=== PATIENT | male | born 1960 | race Caucasian/White ===

== ENCOUNTER 2017-04-16 00:57 | Emergency (ER) | END 2017-04-16 05:04 | disposition home or self-care (01) ==

== ENCOUNTER 2018-01-24 00:18 | Emergency (ER) | END 2018-01-24 03:30 | disposition home or self-care (01) ==

== ENCOUNTER 2018-05-22 09:53 | Inpatient (IN) | payer BC ==
[~2018-05-22] VITALS: Ht 175.3 cm; Wt 111.2 kg
[2018-05-22] VITALS (21 sets, daily range): BP systolic 96–137; BP diastolic 60–85; PULSE 66–100; RESP 10–20; Ht 175.3 cm; Wt 111.2 kg
[~2018-05-22 09:53] MED LIST: ASPI-535 PO; ATOR20TA38 PO; GABA300C16 PO; HYDR-4011 PO; LISI10TA2 PO; OMEG-135 PO; TAMS0.4C2 PO
[2018-05-22] MEDS ORDERED: ATOR20TA65 ORAL (12:12)
--- NOTE | 2018-05-22 12:21 | PREAC ---
Date/Time of Note Date/Time of Note DATE: 05/22/18 TIME: 12:20 Anesthesia Eval and Record Evaluation Time Pre-Procedure Interview DATE: 05/22/18 TIME: 12:20 Age 57 Sex male NPO: 8 hrs Preoperative diagnosis BPH Planned procedure TURP Past Medical History Past Medical History: Includes Cardio: HTN GI: Obesity Surgery & Anesthesia Issues No known issue Meds Anticoagulation: No Beta Kathy within 24 hr: No Reason Beta Kathy not given: Pt. not on B-Kathy Active Scripts Hydrocodone/Acetaminophen ([place] 5-325 Tablet) 1 Each Tablet, 1 TAB PO Q6H PRN for SEVERE PAIN LEVEL 7-10, #20 TAB Prov:WOODROWCAROLYNNSudeep Philip CUPOLA OPERATOR 04/16/17 Reported Medications Atorvastatin Calcium (Atorvastatin Calcium) 20 Mg Tablet, 1 TAB ORAL QHS 05/22/18 [place]-3 Fatty Acids/Fish Oil (Fish Oil 1,000 mg Capsule) 1 Each Capsule, 1 EACH PO DAILY, CAP 01/24/18 Atorvastatin Calcium* (Atorvastatin Calcium*) 20 Mg Tablet, 20 MG PO QHS, #30 TAB 01/24/18 Gabapentin* (Gabapentin*) 300 Mg Capsule, 600 MG PO TID, #180 CAP 01/24/18 Aspirin Ec (Aspir 81) 81 Mg Tablet.dr, 81 MG PO DAILY, #30 TAB 01/24/18 Lisinopril* (Lisinopril*) 10 Mg Tablet, 10 MG PO DAILY, #30 TAB 01/24/18 Tamsulosin Hcl* (Tamsulosin Hcl*) 0.4 Mg Cap.er.24h, 0.4 MG PO HS, CAP 01/24/18 Meds reviewed: Yes Allergies Coded Allergies: No Known Allergy (Unverified , 05/22/18) Allergies Reviewed: Yes Labs/Studies Labs Reviewed: Reviewed by anesthesiologist test: N/A Studies: ECG (NL), CXR (NAPD) Pre-procedure Exam Last vitals Vital Signs Date Temp Pulse Resp B/P (MAP) Pulse Ox O2 O2 Flow FiO2 Time Delivery Rate 05/22/18 97.4 82 18 128/72 96 Room Air 11:55 (90) Airway: Adequate mouth opening, Adequate thyromental dist Mallampati: Mallampati II Teeth: Normal Lung: Normal Heart: Normal ASA Physical Status ASA physical status: 2 Emergency: None Planned Anesthetic General/MAC: ETT Pre-operative Attestations Prior to commencing anesthesia and surgery, the patient was re-evaluated, there was verification of: *The patient's identity *The results of appropriate recent lab work and preoperative vital signs *The above evaluation not changing prior to induction *Anesthetic plan, risk benefits, alternative and complications discussed with patient/family; questions answered; patient/family understands, accepts and wishes to proceed. Rupesh Abdalla M.D. May 22, 2018 12:21
[2018-05-22] MEDS ORDERED: NEOSTIGMINE 3 MG/3 ML SYRINGE ONE (12:28)
[2018-05-22] MEDS ORDERED: ROCURONIUM 50 MG INJ ONE (12:28)
[2018-05-22] MEDS ORDERED: GLYCOPYRROLATE 0.4 MG INJ ONE (12:28)
[2018-05-22] MEDS ORDERED: CEFAZOLIN 1 GM INJ ONE (12:28)
[2018-05-22] MEDS ORDERED: PROPOFOL 20 ML ONE (12:28)
[2018-05-22] MEDS ORDERED: OXYCODONE/ACETAMINOPHEN (5/325) TAB PO PRN ×2 (12:30)
[2018-05-22] MEDS ORDERED: FENTAnyl 50 MCG/ML VIAL ONE ×3 (12:30→13:52)
[2018-05-22] MEDS ORDERED: DEXAMETHASONE 4 MG/ML 5 ML INJ ONE (12:30)
[2018-05-22] MEDS ORDERED: ALBUTEROL 0.083% (NEB) 2.5 MG/3 ML AMP HHN PRN (12:30)
[2018-05-22] MEDS ORDERED: DIPHENHYDRAMINE 50 MG INJ IV PRN (12:30)
[2018-05-22] MEDS ORDERED: EPHEDrine SULFATE 50 MG/5 ML SYG IV PRN (12:30)
[2018-05-22] MEDS ORDERED: HYDROmorphONE 1 MG/5 ML IV SYRINGE IV PRN ×3 (12:30)
[2018-05-22] MEDS ORDERED: LABETALOL HCL 20MG INJ IV PRN (12:30)
[2018-05-22] MEDS ORDERED: IPRATROPIUM (NEB) 0.5 MG/2.5 ML AMP HHN PRN (12:30)
[2018-05-22] MEDS ORDERED: MIDAZOLAM 1 MG/ML 2 ML INJ ONE (12:30)
[2018-05-22] MEDS ORDERED: hydrALAzine 20 MG INJ IV PRN (12:30)
[2018-05-22] MEDS ORDERED: MIDAZOLAM 1 MG/ML 2 ML INJ IV PRN (12:30)
[2018-05-22] MEDS ORDERED: ONDANSETRON 4 MG INJ ONE (12:30)
[2018-05-22] MEDS ORDERED: MEPERIDINE 25 MG INJ IV PRN (12:30)
[2018-05-22] MEDS ORDERED: FENTAnyl 50 MCG/ML VIAL IV PRN ×3 (12:30)
[2018-05-22] MEDS ORDERED: TRIMETHOBENZAMIDE 100 MG/ML VIAL IM PRN (12:30)
[2018-05-22] MEDS ORDERED: ONDANSETRON 4 MG INJ IV PRN (12:30)
--- NOTE | 2018-05-22 12:40 | HPN ---
Date/Time of Note Date/Time of Note DATE: 05/22/18 TIME: 12:39 Interval H&P Admission Note Pt. seen H&P reviewed: No system changes JAMESON ODONNELL MD May 22, 2018 12:40
[2018-05-22] MEDS ORDERED: SUGAMMADEX SODIUM 200 MG/2 ML VIAL IV ONE (14:41)
[2018-05-22] MEDS ORDERED: DEXTROSE 5%-0.45% NACL 1,000 ML IV SCH (15:00)
--- NOTE | 2018-05-22 15:03 | OPR ---
Date/Time of Note Date/Time of Note DATE: 05/22/18 TIME: 14:59 Operative Report Procedure Date: May 22, 2018 Preoperative Diagnosis Benign prostatic hypertrophy and history of urinary retention Postoperative Diagnosis Same Operation/Procedure Performed Transurethral resection of prostate Surgeon see signature line Senior Net Software Engineer Tony Gutierrez Anesthesia Type: general Anesthesiologist: Rupesh Abdalla M.D. Estimated Blood Loss: other (400 mL) Transfusion none Specimen Prostatic tissue Grafts/Implants none Complications none Pt Condition Post Procedure: stable Disposition: PACU Indications Benign prostatic hypertrophy and urinary retention Procedure Description The patient was brought to the operating room and general anesthesia was induced. Timeout was done, the patient was identified by his name, birthdate and the procedure. The patient was given 2 g of Ancef IV at the start of the procedure. The genital area was then prepped and draped in the usual sterile manner. Cystoscopy was done with a 22 Samoan cystoscope and it showed prostatic enlargement with obstruction. He had a very large median lobe as well as lateral lobes. The bladder was trabeculated. There was no bladder tumors or stones. The cystoscope was then removed and the urethra was dilated with the [place] dilators up to #30 Samoan. The 26 Samoan bipolar resectoscope sheath was then introduced under direct vision through the penile urethra all the way to the bladder. Then the resection of the prostate was started. First the median lobe was resected then the right lateral lobe then the left lateral lobe and finally the anterior lobe as well as apical tissue. All the bleeders were electrocoagulated. All the prostatic chips were evacuated. Good hemostasis was obtained. The ureteral orifices as well as external sphincter were intact and safeguarded during the whole procedure. At the end of the procedure the resectoscope was removed and #24 Samoan three-way Chavez catheter was inserted into the bladder. The balloon was inflated with 60 mL of sterile water. The catheter was connected to a drainage bag and continuous bladder irrigation was started in the operating room with normal saline. The patient was transferred to the recovery room in stable and satisfactory condition. JAMESON ODONNELL MD May 22, 2018 15:03
--- NOTE | 2018-05-22 15:07 | PAC ---
Date/Time of Note Date/Time of Note DATE: 05/22/18 TIME: 15:07 Post-Anesthesia Notes Post-Anesthesia Note Last documented vital signs Vital Signs Date Temp Pulse Resp B/P (MAP) Pulse Ox O2 O2 Flow FiO2 Time Delivery Rate 05/22/18 97.4 82 18 128/72 96 Room Air 11:55 (90) Activity: WNL Respiratory function: WNL Cardiovascular function: WNL Mental status: Baseline Pain reasonably controlled: Yes Hydration appropriate: Yes Nausea/Vomiting absent: Yes Rupesh Abdalla M.D. May 22, 2018 15:07
[2018-05-22] MEDS ORDERED: MAGNESIUM HYDROXIDE 30ML CUP PO PRN (15:30)
--- NOTE | 2018-05-22 16:02 | CONS ---
Assessment/Plan Assessment/Plan Assessment/Plan (Daily) 57 yo male with hypertension who is POD-0 for TURP. We have been asked to follow along for medical management - Ok to continue lisinopril - Marilee-TURP management per Dr Gavin - DVT ppx Consultation Date/Type/Reason Admit Date/Time Date/Time of Note DATE: 05/22/18 TIME: 16:00 Hx of Present Illness 57 yo male with hypertension who is POD0 for TURP We have been asked to follow along for medication management Patient currently in PACU, a bit sedated Says he only takes lisinopril Constitutional: no complaints, improved Eyes: no complaints ENT: no complaints Respiratory: no complaints Cardiovascular: no complaints Gastrointestinal: no complaints Genitourinary: no complaints Musculoskeletal: no complaints Skin: no complaints Neurologic: no complaints Endocrine: no complaints Lymphatic: no complaints Psychological: no complaints, nl mood/affect Immunologic: no complaints Past Medical History Medical History: no pertinent history Home Meds Reported Medications Lisinopril* (Lisinopril*) 10 Mg Tablet, 10 MG PO DAILY, #30 TAB 01/24/18 Discontinued Reported Medications Atorvastatin Calcium (Atorvastatin Calcium) 20 Mg Tablet, 1 TAB ORAL QHS 05/22/18 [place]-3 Fatty Acids/Fish Oil (Fish Oil 1,000 mg Capsule) 1 Each Capsule, 1 EACH PO DAILY, CAP 01/24/18 Atorvastatin Calcium* (Atorvastatin Calcium*) 20 Mg Tablet, 20 MG PO QHS, #30 TAB 01/24/18 Gabapentin* (Gabapentin*) 300 Mg Capsule, 600 MG PO TID, #180 CAP 01/24/18 Aspirin Ec (Aspir 81) 81 Mg Tablet.dr, 81 MG PO DAILY, #30 TAB 01/24/18 Tamsulosin Hcl* (Tamsulosin Hcl*) 0.4 Mg Cap.er.24h, 0.4 MG PO HS, CAP 01/24/18 Discontinued Scripts Hydrocodone/Acetaminophen ([place] 5-325 Tablet) 1 Each Tablet, 1 TAB PO Q6H PRN for SEVERE PAIN LEVEL 7-10, #20 TAB Prov:CAROLYNN TROY NP 04/16/17 Medications Current Medications Hydromorphone HCl (Dilaudid) 0.2 mg PACU PRN IV MILD PAIN 1-3; Start 05/22/18 at 12:30; Stop 05/22/18 at 16:30 Hydromorphone HCl (Dilaudid) 0.4 mg PACU PRN IV MOD PAIN 4-6 Last administered on 05/22/18at 15:45; Admin Dose 0.4 MG; Start 05/22/18 at 12:30; Stop 05/22/18 at 16:30 Hydromorphone HCl (Dilaudid) 0.6 mg PACU PRN IV SEVERE PAIN 7-10 Last administered on 05/22/18at 15:28; Admin Dose 0.6 MG; Start 05/22/18 at 12:30; Stop 05/22/18 at 16:30 Fentanyl (Sublimaze) 25 mcg PACU ORDER PRN IV MILD PAIN 1-3; Start 05/22/18 at 12:30; Stop 05/22/18 at 16:30 Fentanyl (Sublimaze) 50 mcg PACU ORDER PRN IV MOD PAIN 4-6; Start 05/22/18 at 12:30; Stop 05/22/18 at 16:30 Fentanyl (Sublimaze) 75 mcg PACU ORDER PRN IV SEVERE PAIN 7-10; Start 05/22/18 at 12:30; Stop 05/22/18 at 16:30 Oxycodone/ Acetaminophen (Percocet (5/ 325)) 1 tab PACU ORDER PRN PO .PAIN 1-5; Start 05/22/18 at 12:30; Stop 05/22/18 at 16:30 Oxycodone/ Acetaminophen (Percocet (5/ 325)) 2 tab PACU ORDER PRN PO .PAIN 6-10; Start 05/22/18 at 12:30; Stop 05/22/18 at 16:30 Ondansetron HCl (Zofran Inj) 4 mg PACU ORDER PRN IV NAUSEA/VOMITING Last administered on 05/22/18at 15:15; Admin Dose 4 MG; Start 05/22/18 at 12:30; Stop 05/22/18 at 16:30 Trimethobenzamide HCl (Tigan) 200 mg PACU ORDER PRN IM NAUSEA/VOMITING; Start 05/22/18 at 12:30; Stop 05/22/18 at 16:30 Labetalol HCl (Labetalol) 5 mg PACU ORDER PRN IV HIGH BLOOD PRESSURE; Start 05/22/18 at 12:30; Stop 05/22/18 at 16:30 Hydralazine HCl (Apresoline) 5 mg PACU ORDER PRN IV HIGH BLOOD PRESSURE; Start 05/22/18 at 12:30; Stop 05/22/18 at 16:30 Ephedrine Sulfate 5 mg PACU ORDER PRN IV BLOOD PRESSURE SUPPORT; Start 05/22/18 at 12:30; Stop 05/22/18 at 16:30 Albuterol (Proventil 0.083% (Neb)) 2.5 mg PACU ORDER PRN HHN .WHEEZING; Start 05/22/18 at 12:30; Stop 05/22/18 at 16:30 Ipratropium Plato (Atrovent 0.02% (Neb)) 0.5 mg PACU ORDER PRN HHN .WHEEZING; Start 05/22/18 at 12:30; Stop 05/22/18 at 16:30 Meperidine HCl (Demerol) 25 mg PACU ORDER PRN IV .RIGORS Last administered on 05/22/18at 15:15; Admin Dose 25 MG; Start 05/22/18 at 12:30; Stop 05/22/18 at 16:30 Diphenhydramine HCl (Benadryl) 25 mg PACU ORDER PRN IV .PRURITUS; Start 05/22/18 at 12:30; Stop 05/22/18 at 16:30 Midazolam HCl (Versed) 0.5 mg PACU ORDER PRN IV .ANXIETY; Start 05/22/18 at 12:30; Stop 05/22/18 at 16:30 Dextrose/Sodium Chloride 1,000 ml @ 50 mls/hr Q20H IV ; Start 05/22/18 at 15:00 Ciprofloxacin (Cipro) 500 mg BID@06,18 PO ; Start 05/22/18 at 18:00 Docusate Sodium (Colace) 100 mg BID PO ; Start 05/22/18 at 21:00 Acetaminophen/ Hydrocodone Bitart ([place] (5/325)) 1 tab Q4H PRN PO MODERATE PAIN LEVEL 4-6; Start 05/22/18 at 15:30 Magnesium Hydroxide (Milk Of Mag) 30 ml DAILY PRN PO CONSTIPATION; Start 05/22/18 at 15:30 Allergies: Coded Allergies: No Known Allergy (Unverified , 05/22/18) Past Surgical History TURP Past Surgical Hx: no surgical history Family History Significant Family History: no pertinent family hx Social History Alcohol Use: none Smoking Status: Never smoker Drug Use: none Exam/Review of Systems Exam Vitals Vital Signs Date Temp Pulse Resp B/P (MAP) Pulse Ox O2 O2 Flow FiO2 Time Delivery Rate 05/22/18 82 12 108/68 97 Room Air 15:51 (81) 05/22/18 98.1 15:18 05/22/18 2.0 15:04 Constitutional: alert, oriented, well developed Psych: no complaints, nl mood/affect Head: normocephalic, atraumatic Eyes: nl conjunctiva, EOMI, nl lids, nl sclera, PERRL ENMT: nl external ears & nose, nl lips & teeth, nl nasal mucosa & septum Neck: supple, non-tender Respiratory: clear to auscultation, normal air movement Cardiovascular: regular rate and rhythm, nl pulses Gastrointestinal: soft, nl liver, spleen, non-tender Musculoskeletal: nl extremities to inspection, nl gait and stance Extremities: normal pulses Neurological: ELECTRICIAN OFFICE II-XII intact, nl mental status, nl speech, nl strength Skin: nl turgor; No rash or lesions Lymph: nl lymph nodes Medications Medication Current Medications Hydromorphone HCl (Dilaudid) 0.2 mg PACU PRN IV MILD PAIN 1-3; Start 05/22/18 at 12:30; Stop 05/22/18 at 16:30 Hydromorphone HCl (Dilaudid) 0.4 mg PACU PRN IV MOD PAIN 4-6 Last administered on 05/22/18at 15:45; Admin Dose 0.4 MG; Start 05/22/18 at 12:30; Stop 05/22/18 at 16:30 Hydromorphone HCl (Dilaudid) 0.6 mg PACU PRN IV SEVERE PAIN 7-10 Last administered on 05/22/18at 15:28; Admin Dose 0.6 MG; Start 05/22/18 at 12:30; Stop 05/22/18 at 16:30 Fentanyl (Sublimaze) 25 mcg PACU ORDER PRN IV MILD PAIN 1-3; Start 05/22/18 at 12:30; Stop 05/22/18 at 16:30 Fentanyl (Sublimaze) 50 mcg PACU ORDER PRN IV MOD PAIN 4-6; Start 05/22/18 at 12:30; Stop 05/22/18 at 16:30 Fentanyl (Sublimaze) 75 mcg PACU ORDER PRN IV SEVERE PAIN 7-10; Start 05/22/18 at 12:30; Stop 05/22/18 at 16:30 Oxycodone/ Acetaminophen (Percocet (5/ 325)) 1 tab PACU ORDER PRN PO .PAIN 1-5; Start 05/22/18 at 12:30; Stop 05/22/18 at 16:30 Oxycodone/ Acetaminophen (Percocet (5/ 325)) 2 tab PACU ORDER PRN PO .PAIN 6-10; Start 05/22/18 at 12:30; Stop 05/22/18 at 16:30 Ondansetron HCl (Zofran Inj) 4 mg PACU ORDER PRN IV NAUSEA/VOMITING Last administered on 05/22/18at 15:15; Admin Dose 4 MG; Start 05/22/18 at 12:30; Stop 05/22/18 at 16:30 Trimethobenzamide HCl (Tigan) 200 mg PACU ORDER PRN IM NAUSEA/VOMITING; Start 05/22/18 at 12:30; Stop 05/22/18 at 16:30 Labetalol HCl (Labetalol) 5 mg PACU ORDER PRN IV HIGH BLOOD PRESSURE; Start 05/22/18 at 12:30; Stop 05/22/18 at 16:30 Hydralazine HCl (Apresoline) 5 mg PACU ORDER PRN IV HIGH BLOOD PRESSURE; Start 05/22/18 at 12:30; Stop 05/22/18 at 16:30 Ephedrine Sulfate 5 mg PACU ORDER PRN IV BLOOD PRESSURE SUPPORT; Start 05/22/18 at 12:30; Stop 05/22/18 at 16:30 Albuterol (Proventil 0.083% (Neb)) 2.5 mg PACU ORDER PRN HHN .WHEEZING; Start 05/22/18 at 12:30; Stop 05/22/18 at 16:30 Ipratropium Plato (Atrovent 0.02% (Neb)) 0.5 mg PACU ORDER PRN HHN .WHEEZING; Start 05/22/18 at 12:30; Stop 05/22/18 at 16:30 Meperidine HCl (Demerol) 25 mg PACU ORDER PRN IV .RIGORS Last administered on 05/22/18at 15:15; Admin Dose 25 MG; Start 05/22/18 at 12:30; Stop 05/22/18 at 16:30 Diphenhydramine HCl (Benadryl) 25 mg PACU ORDER PRN IV .PRURITUS; Start 05/22/18 at 12:30; Stop 05/22/18 at 16:30 Midazolam HCl (Versed) 0.5 mg PACU ORDER PRN IV .ANXIETY; Start 05/22/18 at 12:30; Stop 05/22/18 at 16:30 Dextrose/Sodium Chloride 1,000 ml @ 50 mls/hr Q20H IV ; Start 05/22/18 at 15:00 Ciprofloxacin (Cipro) 500 mg BID@06,18 PO ; Start 05/22/18 at 18:00 Docusate Sodium (Colace) 100 mg BID PO ; Start 05/22/18 at 21:00 Acetaminophen/ Hydrocodone Bitart ([place] (5/325)) 1 tab Q4H PRN PO MODERATE PAIN LEVEL 4-6; Start 05/22/18 at 15:30 Magnesium Hydroxide (Milk Of Mag) 30 ml DAILY PRN PO CONSTIPATION; Start 05/22/18 at 15:30 DAVID FORTE MD May 22, 2018 16:02
[2018-05-22] MEDS: CIPROFLOXACIN 500 MG TAB PO SCH (18:10)
[2018-05-22] MEDS: PANTOPRAZOLE (EC) 40 MG TAB PO SCH (20:57)
[2018-05-22] MEDS ORDERED: CALCIUM CARBONATE 500 MG CHEW TAB PO PRN (21:00)
[2018-05-22] MEDS: DOCUSATE SODIUM 100 MG CAP PO SCH (21:00)
[2018-05-22] MEDS: HYDROCODONE/APAP (5/325) TAB PO PRN (22:02)
[2018-05-23 04:00] VITALS: BP 120/71; PULSE 80; RESP 17
[2018-05-23] MEDS: CIPROFLOXACIN 500 MG TAB PO SCH (06:20)
[2018-05-23 08:16] VITALS: BP 105/60; PULSE 76; RESP 18
[2018-05-23] MEDS: PANTOPRAZOLE (EC) 40 MG TAB PO SCH (09:02)
[2018-05-23] MEDS: DOCUSATE SODIUM 100 MG CAP PO SCH (09:02)
[2018-05-23] MEDS: HYDROCODONE/APAP (5/325) TAB PO PRN ×2 (09:04→14:32)
--- NOTE | 2018-05-23 15:25 | PDOCDIS ---
Discharge Instructions DIAGNOSIS Discharge Diagnosis Benign prostatic hypertrophy and history of urinary retention. Pending pathology report CONDITION [id number] Patient Condition: [id number] Good HOME CARE INSTRUCTIONS: [id number] Diet Instructions: Awhcl2d Regular ACTIVITY: [id number] Activity Restrictions: [id number] Slowly Increase Activity Rest between Activity Avoid heavy lifting No Sexual Activity Do not Drive Avoid Heavy Housework [id number] Bathing Restrictions: [id number] Shower (May shower. Keep the catheter intact and dry it after the shower.) FOLLOW UP/APPOINTMENTS Follow-up Plan Follow-up with DR Gavin on . Call for an appointment JAMESON GAVIN MD May 23, 2018 15:25
--- NOTE | 2018-05-23 15:33 | DS ---
Date/Time of Note Date/Time of Note DATE: 05/23/18 TIME: 15:30 Discharge Summary Admission/Discharge Info Admit Date/Time May 22, 2018 at 15:04 Discharge Date/Time May 22 at 1550 Discharge Diagnosis Benign prostatic hypertrophy and history of urinary retention. Pending pathology report Patient Condition: Good Consults Hospitalist Procedures Patient underwent trans-ureteral resection of prostate on May 21, 2018 Hospital Course Postop he was on continuous bladder irrigation. The irrigation was stopped this morning and the urine remained clear. He is comfortable, has no pain and his vital signs are all stable. Therefore he is being discharged home with a Chavez catheter and a leg bag and he will come to the office next May to have the catheter removed. Urology report is still pending Home Meds Reported Medications Lisinopril* (Lisinopril*) 10 Mg Tablet, 10 MG PO DAILY, #30 TAB 01/24/18 Discontinued Reported Medications Atorvastatin Calcium (Atorvastatin Calcium) 20 Mg Tablet, 1 TAB ORAL QHS 05/22/18 [place]-3 Fatty Acids/Fish Oil (Fish Oil 1,000 mg Capsule) 1 Each Capsule, 1 EACH PO DAILY, CAP 01/24/18 Atorvastatin Calcium* (Atorvastatin Calcium*) 20 Mg Tablet, 20 MG PO QHS, #30 TAB 01/24/18 Gabapentin* (Gabapentin*) 300 Mg Capsule, 600 MG PO TID, #180 CAP 01/24/18 Aspirin Ec (Aspir 81) 81 Mg Tablet.dr, 81 MG PO DAILY, #30 TAB 01/24/18 Tamsulosin Hcl* (Tamsulosin Hcl*) 0.4 Mg Cap.er.24h, 0.4 MG PO HS, CAP 01/24/18 Discontinued Scripts Hydrocodone/Acetaminophen ([place] 5-325 Tablet) 1 Each Tablet, 1 TAB PO Q6H PRN for SEVERE PAIN LEVEL 7-10, #20 TAB Prov:CAROLYNN TROY NP 04/16/17 Follow-up Plan Follow-up with DR Gavin on . Call for an appointment Primary Care Provider Not On Staff Doctor Pending Labs Laboratory Tests Test 05/23/18 04:54 05/23/18 06:56 White Blood Count 10.5 10^3/ul (4.8-10.8) Red Blood Count 4.40 10^6/ul (4.70-6.10) Hemoglobin 13.3 g/dl (14.0-18.0) Hematocrit 39.8 % (42.0-52.0) Mean Corpuscular Volume 90.5 fl (82.0-101.0) Mean Corpuscular Hemoglobin 30.2 pg (29.0-33.0) Mean Corpuscular 33.4 g/dl (32.0-37.0) Hemoglobin Concent Red Cell Distribution Width 13.2 % (11.5-14.5) Platelet Count 218 10^3/UL (140-415) Mean Platelet Volume 10.5 fl (7.4-10.4) Immature Granulocytes % 0.500 % (0.001-0.429) Neutrophils % 88.0 % (39.0-77.0) Lymphocytes % 8.8 % (15.0-51.0) Monocytes % 2.5 % (0.0-11.0) Eosinophils % 0.1 % (0.0-7.0) Basophils % 0.1 % (0.0-2.0) Nucleated Red Blood Cells % 0.0 /100WBC (0.0-0.0) Immature Granulocytes # 0.050 10^3/ul (0.0-0.031) Neutrophils # 9.3 10^3/ul (1.6-7.5) Lymphocytes # 0.9 10^3/ul (0.8-2.9) Monocytes # 0.3 10^3/ul (0.3-0.9) Eosinophils # 0.0 10^3/ul (0.0-0.5) Basophils # 0.0 10^3/ul (0.0-0.1) Nucleated Red Blood Cells # 0.0 10^3/ul (0.0-0.0) Lab Scanned Report REFER[facility] LAB [id number] JAMESON GAVIN MD May 23, 2018 15:33
== END 2018-05-23 16:30 | disposition home or self-care (01) | DRG 714 ==
LOC: SDS 09:53 → REC 15:04 → MS1 16:45
PROVIDERS: ADMIT Urology; ATTEND Urology
PROC: 0VT08ZZ Resection of Prostate, Via Natural or Artificial Opening Endoscopic (ICD-10-PCS; principal; 2018-05-22 12:30)
DX: N40.1 Benign prostatic hyperplasia with lower urinary tract symptoms (principal); R33.8 Other retention of urine; I10 Essential (primary) hypertension; E66.9 Obesity, unspecified; Z68.36 Body mass index [BMI] 36.0-36.9, adult
CPT/HCPCS: 80048; 85025; 88305; J0690; J1100; J1170; J2175; J2250; J2405; J2710; J3010; J7042

== ENCOUNTER 2018-06-23 09:40 | Emergency (ER) | payer BC ==
[~2018-06-23] VITALS: Ht 175.3 cm; Wt 110.0 kg
[~2018-06-23 09:40] MED LIST changes: -ASPI-535 PO; -ATOR20TA38 PO; -GABA300C16 PO; -HYDR-4011 PO; -OMEG-135 PO; -TAMS0.4C2 PO
[2018-06-23 09:45] VITALS: BP 151/83; PULSE 95; RESP 18; Ht 175.3 cm; Wt 110.0 kg
[2018-06-23] MEDS ORDERED: TAMS-14 PO (11:18)
[2018-06-23] MEDS ORDERED: HYDR25SU23 PR (11:18)
[2018-06-23] MEDS ORDERED: CIPR500T4 PO (11:18)
[2018-06-23] MEDS ORDERED: DOCU-144 PO (11:20)
[2018-06-23] MEDS ORDERED: CEFTRIAXONE 1 GM INJ IM ONE (11:30)
[2018-06-23] MEDS ORDERED: LIDOCAINE 1% (MPF) 5 ML VIAL INJ ONE (11:30)
--- NOTE | 2018-06-23 12:15 | ERD ---
ER Documentation Chief Complaint Chief Complaint BURNING SENSATION WHEN URINATION; RECTAL PAIN HPI 57-year-old male presenting with dysuria. Patient stated the one month ago he had BPH and surgery to remove part of his prostate. Patient noted some burning around his anus that he is using hemorrhoid cream. He denies any changes in bowel movement. Denies fevers. Denies perineum pain. Medical history is BPH. He has an appointment on July 01 with urology. NKDA. Surgical history is prostate surgery. Social history denies ROS All systems reviewed and are negative except as per history of present illness. Medications Home Meds Active Scripts Docusate Sodium* (Colace*) 100 Mg Capsule, 100 MG PO TID, #30 CAP Prov:NATALIA HARDWICK PA-C 06/23/18 Tamsulosin Hcl* (Flomax*) 0.4 Mg Cap.er.24h, 0.4 MG PO QPM, #30 CAP Prov:NATALIA HARDWICK PA-C 06/23/18 Hydrocortisone Acetate (Anusol-Hc) 25 Mg Supp.rect, 1 SUPP MD QHS PRN for HEMORROID PAIN/ITCHING, #12 SUPP.RECT Prov:NATALIA HARDWICK PA-C 06/23/18 Ciprofloxacin Hcl* (Ciprofloxacin Hcl*) 500 Mg Tablet, 500 MG PO BID for 10 D ays, TAB Prov:NATALIA HARDWICK PA-C 06/23/18 Reported Medications Lisinopril* (Lisinopril*) 10 Mg Tablet, 10 MG PO DAILY, #30 TAB 01/24/18 Allergies Allergies: Coded Allergies: No Known Allergy (Unverified , 05/22/18) PMhx/Soc History of Surgery: Yes (colonoscopy, cyscopy, biopsy,PROSTATE SX) Anesthesia Reaction: No Hx Neurological Disorder: No Hx Respiratory Disorders: No Hx Cardiac Disorders: Yes (htn) Hx Psychiatric Problems: No Hx Miscellaneous Medical Probl: No Hx Alcohol Use: Yes (OCCASIONAL) Hx Substance Use: No Hx Tobacco Use: No Smoking Status: Never smoker FmHx Family History: No diabetes, No coronary disease, No other Physical Exam Vitals Vital Signs Date Temp Pulse Resp B/P (MAP) Pulse Ox O2 O2 Flow FiO2 Time Delivery Rate 06/23/18 98.1 95 18 151/83 96 09:45 (105) Physical Exam GENERAL: The patient is well-appearing, well-nourished, in no acute distress CHEST: Clear to auscultation bilaterally. There are no rales, wheezes or rhonchi. HEART: Regular rate and rhythm. No murmurs, clicks, rubs or gallops. No S3 or S4. ABDOMEN:Soft, nontender and nondistended. Good bowel sounds. No rebound or guarding. No gross peritonitis. No gross organomegaly or masses. : No erythema to the testicles. No swelling. Uncircumcised. No tenderness to palpation of the perineum. Results 24 hrs Laboratory Tests Test 06/23/18 10:59 Bedside Urine pH (LAB) 7.0 Bedside Urine Protein (LAB) 2+ Bedside Urine Glucose (UA) Negative Bedside Urine Ketones (LAB) Negative Bedside Urine Blood 2+ Bedside Urine Nitrite (LAB) Negative Bedside Urine Leukocyte Esterase (L 2+ Current Medications Medications Dose Sig/Dwight Start Time Status Last (Trade) Ordered Route PRN Stop Time Admin Dose Reason Admin Ceftriaxone 1 gm ONCE ONCE 06/23/18 DC 06/23/18 Sodium IM 11:30 06/23/18 11:37 (Rocephin) 11:31 Lidocaine 5 ml ONCE ONCE 06/23/18 DC 06/23/18 (Xylocaine INJ 11:30 06/23/18 11:37 1% (Mpf)) 11:31 Procedures/MDM Course: Urinalysis positive for infection. Urine culture sent. 1 g Rocephin in ED. MDM: 57-year-old male presenting with dysuria. Patient's urine shows signs of infection. I have low suspicion for prostatitis. I have low suspicion for engorgement into the rectum. I have low suspicion for reji-anal abscess. Patient is discharged with supportive medications and told to follow-up with urologist as previously planned. To return immediately to the ER. All questions answered at discharge. Departure Diagnosis: Primary Impression: UTI (urinary tract infection) Condition: Stable Patient Instructions: Understanding Urinary Tract Infections (UTIs) Referrals: JAMESON ODONNELL MD [facility] YOU HAVE RECEIVED A MEDICAL SCREENING EXAM AND THE RESULTS INDICATE THAT YOU DO NOT HAVE A CONDITION THAT REQUIRES URGENT TREATMENT IN THE EMERGENCY DEPARTMENT. FURTHER EVALUATION AND TREATMENT OF YOUR CONDITION CAN WAIT UNTIL YOU ARE SEEN IN YOUR DOCTORS OFFICE WITHIN THE NEXT 1-2 DAYS. IT IS YOUR RESPONSIBILITY TO MAKE AN APPOINTMENT FOR FOLOW-UP CARE. IF YOU HAVE A PRIMARY DOCTOR --you should call your primary doctor and schedule an appointment IF YOU DO NOT HAVE A PRIMARY DOCTOR YOU CAN CALL OUR PHYSICIAN REFERRAL HOTLINE AT IF YOU CAN NOT AFFORD TO SEE A PHYSICIAN YOU CAN CHOSE FROM THE FOLLOWING [facility] [address] [facility] [email or web address] [facility] [facility] [address] [facility] [address] [facility] [address] [facility]. [facility] [address] Additional Instructions: FOLLOW UP WITH YOUR PRIMARY CARE PHYSICIAN TOMORROW.Return to this facility if you are not improving as expected. NATALIA HARDWICK PA-C June 23, 2018 12:15
== END 2018-06-23 11:46 | disposition home or self-care (01) ==
LOC: FTE 09:40
DX: N39.0 Urinary tract infection, site not specified (principal); I10 Essential (primary) hypertension
CPT/HCPCS: 81003; 87086; 96372; J0696; Z7502; Z7610